=== PATIENT | female | born 1970 | race Caucasian/White ===

== ENCOUNTER 2016-11-06 10:56 | Emergency (ER) | payer SELFPAY ==
--- NOTE | 2016-11-06 11:14 | EDM.PDOC ---
ED HISTORY OF PRESENT ILLNESS - General Chief Complaint: Respiratory Problem Stated Complaint: possible influenza Time Seen by Provider: 11/06/16 10:58 - History of Present Illness INITIAL COMMENTS - FREE TEXT/NARRATIVE: HISTORY AND PHYSICAL: History of present illness: The patient is a 45-year-old female with no stated medical problems who presents with complaints of 3 days of dry hacking cough discomfort in the mid chest with the coughing subjective fevers and diffuse bodyaches. The patient has not had vomiting abdominal pain diarrhea or urinary complaints and has only had a slight sore throat. She has had no runny nose or congestion. She states she did not get her influenza shot this year and no one at home is ill. Patient has been taking [id number] meds for her subjective fever Review of systems: As per history of present illness and below otherwise all systems reviewed and negative. Past medical history: As per history of present illness and as reviewed below otherwise noncontributory. Surgical history: As per history of present illness and as reviewed below otherwise noncontributory. Social history: No reported history of drug or alcohol abuse. Family history: As per history of present illness and as reviewed below otherwise noncontributory. Physical exam: General: Well-developed well-nourished overweight female who is nontoxic and vital signs have been reviewed by me HEENT: Atraumatic, normocephalic, pupils reactive, negative for conjunctival pallor or scleral icterus, mucous membranes moist, throat with one or 2 punctate areas of exudate on the right posterior oropharynx and there is some generalized erythema but no swelling, there is no cervical adenopathy or nuchal rigidity, neck supple, nontender, trachea midline. Lungs: Clear to auscultation, breath sounds equal bilaterally, chest nontender. Heart: S1S2, regular, negative for clicks, rubs, or JVD. Abdomen: Soft, nondistended, nontender. Negative for masses or hepatosplenomegaly. Negative for costovertebral tenderness. Pelvis: Stable nontender. Genitourinary: Deferred. Rectal: Deferred. Extremities: Atraumatic, negative for cords or calf pain. Neurovascular unremarkable. No pedal edema Neuro: Awake, alert, oriented. Cranial nerves II through XII unremarkable. Cerebellum unremarkable. Motor and sensory unremarkable throughout. Exam nonfocal. Diagnostics: Influenza rapid strep Therapeutics: [] Impression: Influenza B. Definitive disposition and diagnosis as appropriate pending reevaluation and review of above. - Related Data Allergies/ADRs: Allergies Allergy/AdvReac Type Severity Reaction Status Date / Time No Known Allergies Allergy Verified 11/06/16 10:58 Home Meds: Home Meds . [No Known Home Meds] 11/06/16 [History] Past Medical History - Past Health History Medical/Surgical History: Denies Medical/Surgical History HEENT History: Reports: None Cardiovascular History: Reports: None Respiratory History: Reports: None Gastrointestinal History: Reports: None Psychiatric History: Reports: None - Infectious Disease History Infectious Disease History: Reports: None - Past Surgical History HEENT Surgical History: Reports: None GI Surgical History: Reports: Cholecystectomy Female Surgical History: Reports: section Social & Family History - Tobacco Use Smoking Status *Q: Never Smoker Second Hand Smoke Exposure: No - Recreational Drug Use Recreational Drug Use: No ED ROS GENERAL - Review of Systems Review Of Systems: ROS reveals no pertinent complaints other than HPI. ED EXAM, GENERAL - Physical Exam Exam: See Below (See dictation) Course - Vital Signs Last Recorded V/S: Last Vital Signs Temp 36.6 C 11/06/16 10:59 Pulse 94 11/06/16 10:59 Resp 16 11/06/16 10:59 BP 143/86 H 11/06/16 10:59 Pulse Ox 98 11/06/16 10:59 - Orders/Labs/Meds Orders: Active Orders 24 hr Category Date Time Status CULTURE STREP A CONFIRMATION [RM] Stat Lab 11/06/16 11:10 Results STREP SCRN A RAPID W CULT CONF [RM] Stat Lab 11/06/16 11:10 Results Departure - Departure Time of Disposition: 11:41 Disposition: Home, Self-Care 01 Condition: good Clinical Impression: Influenza B Forms: ED Department Discharge Additional Instructions: The following information is given to patients seen in the emergency department who are being discharged to home. This information is to outline your options for follow-up care. We provide all patients seen in our emergency department with a follow-up referral. The need for follow-up, as well as the timing and circumstances, are variable depending upon the specifics of your emergency department visit. If you don't have a primary care physician on staff, we will provide you with a referral. We always advise you to contact your personal physician following an emergency department visit to inform them of the circumstance of the visit and for follow-up with them and/or the need for any referrals to a consulting specialist. The emergency department will also refer you to a specialist when appropriate. This referral assures that you have the opportunity for followup care with a specialist. All of these measure are taken in an effort to provide you with optimal care, which includes your followup. Under all circumstances we always encourage you to contact your private physician who remains a resource for coordinating your care. When calling for followup care, please make the office aware that this follow-up is from your recent emergency room visit. If for any reason you are refused follow-up, please contact the [facility] emergency department at and ask to speak to the emergency department charge nurse. [facility]- [facility] [address] [address] Push hydration, use [id number] Tylenol/ibuprofen for fever and bodyaches and please call and followup with primary care physician in the next few days. Take Tamiflu as directed. Return to ER as needed and as discussed - My Orders Last 24 Hours: My Active Orders 11/06/16 11:10 CULTURE STREP A CONFIRMATION [RM] Stat STREP SCRN A RAPID W CULT CONF [RM] Stat - Assessment/Plan Last 24 Hours: My Active Orders 11/06/16 11:10 CULTURE STREP A CONFIRMATION [RM] Stat STREP SCRN A RAPID W CULT CONF [RM] Stat
[2016-11-06 11:54] VITALS: BP 112/73
== END 2016-11-06 11:55 | disposition home or self-care (01) ==
LOC: MW.ED 10:56
DX: J10.1 Influenza due to other identified influenza virus with other respiratory manifestations (principal); Z90.49 Acquired absence of other specified parts of digestive tract
CPT/HCPCS: 87081; 87804; 87880; 99283

== ENCOUNTER 2018-10-09 06:32 | Emergency (ER) | payer SELFPAY ==
[2018-10-09] MEDS ORDERED: Ketorolac 30 MG/ML SDV IVPUSH ONE (07:57)
--- NOTE | 2018-10-09 08:04 | CR ---
INDICATION: Right shoulder neck pain. COMPARISON: none TECHNIQUE: Two-view right shoulder FINDINGS: The bones are anatomically aligned. There is no evidence of a fracture or bone destruction. There is mild hypertrophic spurring about the AC joint. Glenohumeral joint appears intact. IMPRESSION: Mild degenerative change noted within the right AC joint Dictated by Jackson Winters MD @ Oct 09 2018 8:02AM Signed by Dr. Jackson Winters @ Oct 09 2018 8:03AM
--- NOTE | 2018-10-09 08:06 | EDM.PDOC ---
ED HPI GENERAL MEDICAL PROBLEM - General Chief Complaint: Neck Problem Stated Complaint: RIGHT SIDE PAIN Time Seen by Provider: 10/09/18 07:51 - History of Present Illness INITIAL COMMENTS - FREE TEXT/NARRATIVE: HISTORY AND PHYSICAL: History of present illness: Patient's 47-year-old female presents with concern of right-sided neck pain 1 month she states been some radiation to her right shoulder there's been no associated shortness breath nausea vomiting denies trauma she denies any other neurological signs or symptoms. Review of systems: As per history of present illness and below otherwise all systems reviewed and negative. Past medical history: As per history of present illness and as reviewed below otherwise noncontributory. Surgical history: As per history of present illness and as reviewed below otherwise noncontributory. Social history: No reported history of drug or alcohol abuse. Family history: As per history of present illness and as reviewed below otherwise noncontributory. Physical exam: HEENT: Atraumatic, normocephalic, pupils reactive, negative for conjunctival pallor or scleral icterus, mucous membranes moist, throat clear, neck tenderness in the right paravertebral region vertebral body or point tenderness , nontender, trachea midline. Lungs: Clear to auscultation, breath sounds equal bilaterally, chest nontender. Heart: S1S2, regular, negative for clicks, rubs, or JVD. Abdomen: Soft, nondistended, nontender. Negative for masses or hepatosplenomegaly. Negative for costovertebral tenderness. Pelvis: Stable nontender. Genitourinary: Deferred. Rectal: Deferred. Extremities: Atraumatic, negative for cords or calf pain. Neurovascular unremarkable. Neuro: Awake, alert, oriented. Cranial nerves II through XII unremarkable. Cerebellum unremarkable. Motor and sensory unremarkable throughout. Exam nonfocal. Diagnostics: CT cervical spine right shoulder x-ray Therapeutics: Toradol 30 mg IV Impression: #1 right neck pain with cervical radiculopathy Definitive disposition and diagnosis as appropriate pending reevaluation and review of above. neck Pain Score (Numeric/FACES): 10 - Related Data Allergies Allergy/AdvReac Type Severity Reaction Status Date / Time No Known Allergies Allergy Verified 11/06/16 10:58 Home Meds: Home Meds . 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 ED EXAM, GENERAL - Physical Exam Exam: See Below (See dictation) Course - Vital Signs Last Recorded V/S: Last Vital Signs Temp 36.2 C 10/09/18 06:35 Pulse 77 10/09/18 06:35 Resp 20 10/09/18 06:35 BP 176/103 H 10/09/18 06:35 Pulse Ox 97 10/09/18 06:35 - Orders/Labs/Meds Orders: Active Orders 24 hr Category Date Time Status EKG Documentation Completion [RC] STAT Care 10/09/18 06:57 Active Meds: Medications Discontinued Medications Generic Name Dose Route Start Last Admin Trade Name Freq PRN Reason Stop Dose Admin Ketorolac Tromethamine 30 mg 10/09/18 07:57 10/09/18 08:03 Toradol IVPUSH 10/09/18 07:58 30 mg ONETIME ONE Administration Departure - Departure Time of Disposition: 09:44 Disposition: Home, Self-Care 01 Condition: Good Clinical Impression: Neck pain, Abnormal CT of spine, Cervical radiculopathy - Discharge Information Referrals: PCP,None [Primary Care Provider] - Forms: ED Department Discharge Additional Instructions: The following information is given to patients seen in the emergency department who are being discharged to home. This information is to outline your options for follow-up care. We provide all patients seen in our emergency department with a follow-up referral. The need for follow-up, as well as the timing and circumstances, are variable depending upon the specifics of your emergency department visit. If you don't have a primary care physician on staff, we will provide you with a referral. We always advise you to contact your personal physician following an emergency department visit to inform them of the circumstance of the visit and for follow-up with them and/or the need for any referrals to a consulting specialist. The emergency department will also refer you to a specialist when appropriate. This referral assures that you have the opportunity for followup care with a specialist. All of these measure are taken in an effort to provide you with optimal care, which includes your followup. Under all circumstances we always encourage you to contact your private physician who remains a resource for coordinating your care. When calling for followup care, please make the office aware that this follow-up is from your recent emergency room visit. If for any reason you are refused follow-up, please contact the [facility] emergency department at and asked to speak to the emergency department charge nurse. [facility] [address] [place] [id number] Motrin/Tylenol as directed follow-up with MRI of cervical spine as discussed follow-up with primary medical doctor for coordination of review of MRI as discussed in further diagnostics and treatment as indicated - My Orders Last 24 Hours: My Active Orders 10/09/18 06:57 EKG Documentation Completion [RC] STAT - Assessment/Plan Last 24 Hours: My Active Orders 10/09/18 06:57 EKG Documentation Completion [RC] STAT
--- NOTE | 2018-10-09 08:33 | CT ---
INDICATION: One-month history of pain in the right neck and right shoulder. TECHNIQUE: A CT volumetric acquisition was performed of the cervical spine without IV contrast. FINDINGS: The cervical vertebra appear anatomically aligned on the sagittal and coronal reformations. There is no evidence of a fracture or vertebral subluxation. There is mild degenerative narrowing of C5-6 and C6-7 disc spaces. There is a lytic area 7 x 8 mm area within the right C6 facet. There is mild joint space narrowing and sclerosis within the C4-5 and C5-6 and C6-7 facet joint right greater than left. The spinous processes appear intact. There is no evidence of a paraspinal or epidural hematoma. IMPRESSION: 8 mm lytic lesion noted within the right C-6 facet. Findings could indicate a potential metastatic lesion or perhaps a subchondral cyst relating to degeneration within the overlying facet joint. Would recommend cervical MRI for further characterization. Please note that all CT scans at this facility use dose modulation, iterative reconstruction, and/or weight-based dosing when appropriate to reduce radiation dose to as low as reasonably achievable. Dictated by Jackson Winters MD @ Oct 09 2018 8:14AM Signed by Dr. Jackson Winters @ Oct 09 2018 8:31AM
[2018-10-09 10:22] VITALS: BP 129/72
== END 2018-10-09 10:23 | disposition home or self-care (01) ==
LOC: MW.ED 06:32
DX: M54.12 Radiculopathy, cervical region (principal); R93.7 Abnormal findings on diagnostic imaging of other parts of musculoskeletal system
CPT/HCPCS: 72125; 73030; 93005; 96374; 99284; J1885; 99283